=== PATIENT | female | born 1960 | race Caucasian/White ===

== ENCOUNTER 2018-02-25 07:12 | Day surgery (SDC) | payer BC ==
[~2018-02-25 07:12] MED LIST: ACYC800 PO; AMOX875 PO; Antivert25 MG PO; CALCA500CH PO; CIPR500 PO; CONEST1.25 PO; DOXE50 PO; Doxazosin Mesyla8 MG PO; FAMO20 PO; FLAX PO; HYDACE5 PO; HYDACE7.5 PO; Hydrocodone-Ap1 EA23 PO; LAMO100 PO; LAMO50 PO; LEVOTHYROXINE 100 MG; LEVSOD100 PO; LEVSOD25 PO; LEVSOD75 PO; MIRT30 PO; OMEP20ER PO; OXYACE5T PO; Omeprazole20 M1 PO; PARO10 PO; PENVK500 PO; PHENA200 PO; PRIMROSE; PROM25 PO; QUET100 PO; QUET300 PO; RXPHEN200 PO; TOCO1000 PO; TOCO400 PO; VICODIN 5-3001 EACH PO; VITAMIN D10000 UNIT PO; Vicodin PO; ZOLP10 PO; [UNRECOGNIZED DRUG - OTHER] PO
== END 2018-02-25 23:10 | disposition home or self-care (01) ==
LOC: MOI US 07:12
PROC: 0HBU3ZX Excision of Left Breast, Percutaneous Approach, Diagnostic (ICD-10-PCS; principal; 2018-02-25)
DX: D49.3 Neoplasm of unspecified behavior of breast (principal)
CPT/HCPCS: 19083; 77065; 88305

== ENCOUNTER → 2019-06-27 | Outpatient (CLI) | payer BC ==
[~2019-06-27] MED LIST changes: +Cephalexin500 MG PO; +Hair, Skin & N1 EACH PO; +IRON18 MG PO; +Norco 7.5-3251 EACH PO; +Prinivil10 MG PO; +Pyridium100 MG PO
[2019-06-27 15:31] LABS: BASOPHILS ABSOLUTE AUTO 0.03 K/mm3 (0.00-0.23); BASOPHILS PERCENT AUTO 1 % (0-2); EOSINOPHILS ABSOLUTE AUTO 0.08 K/mm3 (0.00-0.68); EOSINOPHILS PERCENT AUTO 1 % (0-6); Hematocrit 35.8 % (33.0-51.0); Hemoglobin 11.8 g/dL (11.5-16.0); IMMATURE GRAN ABSOLUTE AUTO 0.03 K/mm3 (0.00-0.10); IMMATURE GRAN PERCENT AUTO 1 % (0-1); LYMPHOCYTES ABSOLUTE AUTO 2.71 K/mm3 (0.84-5.20); LYMPHOCYTES PERCENT AUTO 43 % (21-46); MONOCYTES ABSOLUTE AUTO 0.38 K/mm3 (0.16-1.47); MONOCYTES PERCENT AUTO 6 % (4-13); Mean Corpuscular HGB 33.8 pg (26.0-34.0); Mean Corpuscular Volume 103 fL (80-100); Mean Platelet Volume 9.4 fL (9.1-12.4); NEUTROPHILS ABSOLUTE AUTO 3.08 K/mm3 (1.96-9.15); NEUTROPHILS PERCENT AUTO 49 % (41-73); Platelet Count 296 K/mm3 (150-400); RDW Coefficient Variation 12.8 % (11.7-14.2); Red Blood Cell Count 3.49 M/mm3 (3.80-5.20); White Blood Cell Count 6.31 K/mm3 (4.00-11.30)
== END | disposition home or self-care (01) ==
LOC: LAB EV 15:24 → LAB SHORT 15:24
PROVIDERS: Physician Assistant
DX: R59.0 Localized enlarged lymph nodes (principal)
CPT/HCPCS: 85025

== ENCOUNTER 2019-06-28 10:03 | Observation (INO) | payer BC ==
[~2019-06-28] VITALS: Ht 162.6 cm; Wt 56.8 kg
[~2019-06-28 10:03] MED LIST changes: -IRON18 MG PO; -Norco 7.5-3251 EACH PO; -Prinivil10 MG PO; -Pyridium100 MG PO
[2019-06-28 11:21] LABS: Hematocrit 37.9 % (33.0-51.0); Hemoglobin 12.1 g/dL (11.5-16.0); Mean Corpuscular HGB 33.3 pg (26.0-34.0); Mean Corpuscular HGB Conc 31.9 g/dL (31.5-36.5); Mean Corpuscular Volume 104 fL (80-100); Mean Platelet Volume 9.1 fL (9.1-12.4); Platelet Count 287 K/mm3 (150-400); RDW Coefficient Variation 12.6 % (11.7-14.2); RDW Standard Deviation 48.6 fL (35.1-46.3); Red Blood Cell Count 3.63 M/mm3 (3.80-5.20); White Blood Cell Count 5.35 K/mm3 (4.00-11.30)
[2019-06-28 11:39] LABS: Alanine Aminotransfer (ALT/SGP 33 U/L (12-78); Albumin, Blood 3.6 g/dL (3.4-5.0); Albumin/Globulin Ratio 1.2 (0.8-1.8); Alk Phos 89 U/L (50-136); Anion Gap 5 mmol/L (6-16); Aspartate Aminotrans (AST/SGOT 24 U/L (12-37); Bilirubin, Total 0.3 mg/dL (0.1-1.0); Blood Urea Nitrogen 7 mg/dL (8-24); Bun/Creatinine Ratio 11.2 (12.0-20.0); CO2, Blood 24 mmol/L (21-32); Calcium, Blood 8.9 mg/dL (8.5-10.1); Chloride, Blood 113 mmol/L (98-108); Creatinine, Blood 0.63 mg/dL (0.40-1.00); Glomerular Filtration Rate >60 (60-); Glucose, Blood 84 mg/dL (70-99); Potassium, Blood 4.1 mmol/L (3.5-5.5); Sodium, Blood 142 mmol/L (136-145); Total Protein, Blood 6.6 g/dL (6.4-8.2)
--- NOTE | 2019-06-28 13:20 | NUR ---
History, Chart, Medications and Allergies reviewed before start of procedure. Lungs clear T/O to Auscultation. Patient confirms NPO status and agrees with scheduled surgery.
--- NOTE | 2019-06-28 15:02 | NUR ---
06/28/19 1502 Edis Casarez PATIENT POSITIONED USING PINK PAGAZI PAD. ARMS PADDED WITH FOAM AND TUCKED AT SIDES. SAFETY STRAP ACROSS CHEST AND THIGHS.
--- NOTE | 2019-06-28 18:14 | NUR ---
POST OP PT ARRIVES POST OP, VERY PAINFUL, TEARFUL, BUT STOIC. LAP SITES x 3 W/ CLEAN STERI STRIPS. CASTANO WNL. LUNGS CLEAR. HRR.
--- NOTE | 2019-06-29 07:01 | NUR ---
RECVD REPORT FROM PREVIOUS SHIFT RN SUMMER. PT AWAKE IN BED, A/0 X 4, PLEASANT/COOPERATIVE, BED IN LOWEST POSITION, BED RAILS UP X 2.
--- NOTE | 2019-06-29 11:40 | NUR ---
DR MARTÍNEZ ROUNDING ON PT
[2019-06-29] MEDS ORDERED: Norco 7.5-3251 EACH PO (16:44)
--- NOTE | 2019-06-29 16:50 | NUR ---
provided pt with discharge teaching, instructions, printed material. pt states understanding of instructions. written prescriptions provided to pt's . peripheral IVs removed WNL. pt's escorted belongings to awaiting vehicle. pt escorted via wheelchair to vehicle
[2019-08-14] MEDS ORDERED: Prinivil10 MG PO (10:40)
[2019-08-14] MEDS ORDERED: Pyridium100 MG PO (10:42)
== END 2019-06-29 16:55 | disposition home or self-care (01) ==
LOC: SURS 10:03
PROVIDERS: Family Medicine; Surgery; ADMIT Internal Medicine Endocrinology, Diabetes & Metabolism
PROC: 8E0W0CZ Robotic Assisted Procedure of Trunk Region, Open Approach (ICD-10-PCS; 2019-06-28)
PROC: 0YU60JZ Supplement Left Inguinal Region with Synthetic Substitute, Open Approach (ICD-10-PCS; principal; 2019-06-28 13:45)
DX: K40.30 Unilateral inguinal hernia, with obstruction, without gangrene, not specified as recurrent (principal); K41.30 Unilateral femoral hernia, with obstruction, without gangrene, not specified as recurrent; Q43.8 Other specified congenital malformations of intestine; I10 Essential (primary) hypertension; J45.909 Unspecified asthma, uncomplicated; E03.9 Hypothyroidism, unspecified; F32.9 Major depressive disorder, single episode, unspecified; F41.9 Anxiety disorder, unspecified; Z98.84 Bariatric surgery status; Z98.890 Other specified postprocedural states; Z79.51 Long term (current) use of inhaled steroids; Z79.899 Other long term (current) drug therapy; Z88.6 Allergy status to analgesic agent; Z88.5 Allergy status to narcotic agent; Z88.8 Allergy status to other drugs, medicaments and biological substances; Z88.1 Allergy status to other antibiotic agents; Z91.048 Other nonmedicinal substance allergy status
CPT/HCPCS: 36415; 80053; 85027; 87070; 87081; 93005; 93010; A9270-GY; C1781; G0378; J0690; J1100; J1170; J2250; J2370; J2405; J2704; J3010; J7120

== ENCOUNTER 2019-08-17 06:56 | Day surgery (SDC) | payer BC ==
[~2019-08-17] VITALS: Ht 164 cm; Wt 55.3 kg
[~2019-08-17 06:56] MED LIST changes: +Norco 7.5-3251 EACH PO; +Prinivil10 MG PO; +Pyridium100 MG PO
[2019-08-17] MEDS ORDERED: IRON18 MG PO (07:16)
--- NOTE | 2019-08-17 08:01 | NUR ---
Ambulatory in Day Surgery History, Chart, Medications and Allergies reviewed before start of procedure.Patient confirms NPO status and agrees with scheduled surgery. Patient reports completing Chlorhexadine shower X2 prior to admission to hospital.Surgical site prepped with 2% Chlorhexidine cloth wipe. Lungs clear T/O to Auscultation. Patient States Post-Procedure ride home has been arranged. GLASSES REMOVED AND TAKEN TO PACU. PT INSISTED PERSONAL PILLOW BE USED ON [facility].
--- NOTE | 2019-08-17 09:56 | NUR ---
PT CONTINUES TO RATE PAIN AT 8/10 AFTER TOATL OF 100 MCG FENTANYL. PT REQUESTS DILAUDID FOR PAIN CONTROL "I DO REALLY WELL WITH DILAUDID." WILL DISCCUSS WITH MD. RESP STATUS WNL. SATS 100% ON RA. RR 16-18.
--- NOTE | 2019-08-17 10:17 | NUR ---
APPROX [address]POKE [address] MEEHAN WHO ORDERED IV DILAUDID FOR PAIN CONTROL. PT STATES "THAT'S SO MUCH BETTER" AFTER ADMINISTRATION. RATES PAIN 6/10 AT THIS TIME AND STATES "PAIN IS GOING DOWN."
--- NOTE | 2019-08-17 10:29 | NUR ---
Dressing to procedure site clean, dry, intact with no visible drainag, swelling, erythema or bruising noted.
--- NOTE | 2019-08-17 11:19 | NUR ---
Patient up to Ambulate independently. Gait stead. Discharge instructions reviewed with patient. Patient verbalizes understanding. Copy given to patient to take home. Dressing to procedure site clean, dry, intact with no visible drainage, swelling, erythema or bruising noted. Discharged via wheelchair to private car for ride home. pATIENT PAIN LOWER TO/ AND THE PATIENT STATED THAT SHE WAS READY TO GO HOME.
== END 2019-08-17 11:30 | disposition home or self-care (01) ==
LOC: ORSCMMR 06:56 → ORD 08:45 → ORSCMMR 08:45
PROVIDERS: Surgery
PROC: 0WUF0JZ Supplement Abdominal Wall with Synthetic Substitute, Open Approach (ICD-10-PCS; principal; 2019-08-17 08:45)
DX: K43.6 Other and unspecified ventral hernia with obstruction, without gangrene (principal); I10 Essential (primary) hypertension; J45.909 Unspecified asthma, uncomplicated; E03.9 Hypothyroidism, unspecified; F31.9 Bipolar disorder, unspecified; Z79.899 Other long term (current) drug therapy
CPT/HCPCS: A9270-GY; C1781; J0690; J1100; J1170; J2250; J2370; J2405; J2704; J3010; J7120

== ENCOUNTER 2020-01-01 19:17 | Emergency (ER) | payer BC ==
[~2020-01-01] VITALS: Ht 162.6 cm; Wt 58.1 kg
[~2020-01-01 19:17] MED LIST changes: +IRON18 MG PO
[2020-01-01 20:20] LABS: BASOPHILS ABSOLUTE AUTO 0.03 K/mm3 (0.00-0.23); BASOPHILS PERCENT AUTO 1 % (0-2); EOSINOPHILS ABSOLUTE AUTO 0.19 K/mm3 (0.00-0.68); EOSINOPHILS PERCENT AUTO 3 % (0-6); IMMATURE GRAN ABSOLUTE AUTO 0.03 K/mm3 (0.00-0.10); IMMATURE GRAN PERCENT AUTO 1 % (0-1); LYMPHOCYTES ABSOLUTE AUTO 2.01 K/mm3 (0.84-5.20); LYMPHOCYTES PERCENT AUTO 36 % (21-46); MONOCYTES ABSOLUTE AUTO 0.58 K/mm3 (0.16-1.47); MONOCYTES PERCENT AUTO 11 % (4-13); Mean Corpuscular HGB 33.4 pg (26.0-34.0); Mean Corpuscular HGB Conc 33.3 g/dL (31.5-36.5); Mean Corpuscular Volume 100 fL (80-100); Mean Platelet Volume 9.6 fL (9.1-12.4); NEUTROPHILS ABSOLUTE AUTO 2.68 K/mm3 (1.96-9.15); NEUTROPHILS PERCENT AUTO 49 % (41-73); Platelet Count 324 K/mm3 (150-400); RDW Coefficient Variation 12.6 % (11.7-14.2); RDW Standard Deviation 46.6 fL (35.1-46.3); Red Blood Cell Count 3.89 M/mm3 (3.80-5.20); White Blood Cell Count 5.52 K/mm3 (4.00-11.30)
[2020-01-01 20:46] LABS: Alanine Aminotransfer (ALT/SGP 78 U/L (12-78); Albumin, Blood 2.9 g/dL (3.4-5.0); Albumin/Globulin Ratio 0.8 (0.8-1.8); Alk Phos 120 U/L (50-136); Anion Gap 5 mmol/L (6-16); Aspartate Aminotrans (AST/SGOT 74 U/L (12-37); Bilirubin, Total 0.2 mg/dL (0.1-1.0); Blood Urea Nitrogen 10 mg/dL (8-24); Bun/Creatinine Ratio 17.8 (12.0-20.0); CO2, Blood 22 mmol/L (21-32); Chloride, Blood 114 mmol/L (98-108); Creatinine, Blood 0.56 mg/dL (0.40-1.00); Globulin, Blood 3.7 g/dL (2.2-4.0); Glomerular Filtration Rate >60 (60-); Glucose, Blood 114 mg/dL (70-99); Potassium, Blood 4.6 mmol/L (3.5-5.5); Sodium, Blood 141 mmol/L (136-145); Total Protein, Blood 6.6 g/dL (6.4-8.2); Troponin I <0.015 ng/mL (0.000-0.040)
[2020-01-01] MEDS ORDERED: Prednisone20 MG PO (21:06)
== END 2020-01-01 21:59 | disposition home or self-care (01) ==
LOC: ER 19:17
PROVIDERS: Physician Assistant
DX: R05 Cough (principal); F31.81 Bipolar II disorder; I10 Essential (primary) hypertension; Z87.891 Personal history of nicotine dependence; Z79.899 Other long term (current) drug therapy
CPT/HCPCS: 80053; 83690; 84484; 85025; 93005; 93010; 99283-25; J7512

== ENCOUNTER 2020-05-17 21:07 | Emergency (ER) | payer BC ==
[~2020-05-17] VITALS: Ht 160 cm; Wt 61.2 kg
[~2020-05-17 21:07] MED LIST changes: +Prednisone20 MG PO
== END 2020-05-17 22:55 | disposition home or self-care (01) ==
LOC: ER 21:07
DX: S92.512A Displaced fracture of proximal phalanx of left lesser toe(s), initial encounter for closed fracture (principal); Z88.5 Allergy status to narcotic agent; Z88.1 Allergy status to other antibiotic agents; Z91.040 Latex allergy status; Z88.8 Allergy status to other drugs, medicaments and biological substances; Z91.018 Allergy to other foods; Z79.899 Other long term (current) drug therapy; Z79.52 Long term (current) use of systemic steroids; F31.9 Bipolar disorder, unspecified; Z87.891 Personal history of nicotine dependence; X58.XXXA Exposure to other specified factors, initial encounter
CPT/HCPCS: 73630; 99283-25

== ENCOUNTER 2021-02-10 15:35 | Day surgery (SDC) | payer BC ==
[~2021-02-10] VITALS: Ht 160 cm; Wt 63.4 kg
[2021-02-10 16:45] LABS: Hematocrit 42.6 % (33.0-51.0); Hemoglobin 13.8 g/dL (11.5-16.0); Mean Corpuscular HGB 32.2 pg (26.0-34.0); Mean Corpuscular HGB Conc 32.4 g/dL (31.5-36.5); Mean Corpuscular Volume 99 fL (80-100); Mean Platelet Volume 9.5 fL (9.1-12.4); Platelet Count 347 K/mm3 (150-400); RDW Coefficient Variation 12.9 % (11.7-14.2); RDW Standard Deviation 47.1 fL (35.1-46.3); Red Blood Cell Count 4.29 M/mm3 (3.80-5.20); White Blood Cell Count 5.67 K/mm3 (4.00-11.30)
[2021-02-10 17:00] LABS: International Normalized Ratio 0.97; Prothrombin Time Results 10.4 Sec (9.7-11.5)
[2021-02-10 17:12] LABS: Anion Gap 6 mmol/L (6-16); Blood Urea Nitrogen 12 mg/dL (8-24); Bun/Creatinine Ratio 16.8 (12.0-20.0); CO2, Blood 23 mmol/L (21-32); Calcium, Blood 8.9 mg/dL (8.5-10.1); Chloride, Blood 113 mmol/L (98-108); Creatinine, Blood 0.71 mg/dL (0.40-1.00); Glomerular Filtration Rate >60 (60-); Glucose, Blood 88 mg/dL (70-99); Potassium, Blood 4.1 mmol/L (3.5-5.5); Sodium, Blood 142 mmol/L (136-145)
--- NOTE | 2021-02-10 17:26 | NUR ---
Echocardiogram completed.
--- NOTE | 2021-02-10 17:57 | NUR ---
SHIFT SUMMARY; DIRECT ADMIT FROM [facility] TODAY. A/A/OX4, INDEPENDANT IN ROOM. NPO AFTER MIDNIGHT FOR PACEMAKER PLACEMENT TOMORROW. ECHO COMPLETE THIS AFTERNOON. VSS, WILL CONTINUE TO TREAT AND MONITOR UNTIL CHANGE OF SHIFT.
[2021-02-10 19:00] LABS: Influenza A, PCR NEGATIVE (NEGATIVE); Influenza B, PCR NEGATIVE (NEGATIVE); Resp Syncytial Virus, PCR NEGATIVE (NEGATIVE); SARS-Cov-2 (COVID-19) PCR, MMC NEGATIVE (NEGATIVE)
--- NOTE | 2021-02-11 04:15 | NUR ---
VAT HOUSE LABORER SUMMARY PT HAS HAD A HR BETWEEN 60-80 THROUGH MOST OF THE SHIFT. PT HAS DENIED ANY DIZZINESS WHILE AMBULATING.NO C/O CP OR NAUSEA THIS SHIFT. PT C/O BACK PAIN AND A HEADACHE AND WAS MEDICATED PER EMAR. PT NPO AFTER MIDNIGHT. BP ELEVATED AT START OF SHIFT BUT RESOLVED AFTER GIVEN PAIN MEDICATION. WCTM.
--- NOTE | 2021-02-11 07:17 | NUR ---
TAKEN TO CIVIL ENGINEERING INTERN FOR PACEMAKER.
--- NOTE | 2021-02-11 14:15 | NUR ---
CARE COORDINATION REFERRAL - ADMIT: 02/10/21 DISCHARGE: DX: 2ND DEGREE AV BLOCK CC: KWILCOX AMALIA CALL: (WOUND CHECK- 1 WEEK; DEVICE CHECK- 1MO) RESIDENCE: HOME WITH SPOUSE CAREGIVER: RORO, , DREW, DAUGHTER IN LAW, DX: HTN, CHRONIC PAIN SYNDROME, GERD, IBS, SEE LIST DME: COMPRESSION STOCKINGS, WALKING CAST CCM: NONE HOME HEALTH: NONE SUMMARY: ADMIT: 02/10/21 02/11/21- PER CHART REVIEW, PT HAD DUAL CHAMBER PACEMAKER PLACED TODAY. PER CARDIOLOGY NOTE, PT NEEDS WOUND CHECK IN 1 WEEK AND DEVICE CHECK IN 1 MO WITH TIRE BEADER MAKER. PER DR. COLLAZO, PT WILL BE ABLE TO D/C TOMORROW. MET WITH PT AND HER , REVIEWED AMALIA LETTER. WILL BE TAKING HER HOME AND IS ABLE TO PROVIDE HER CARE NEEDS IN THE HOME. REVIEWED WITH PT AND WHAT FOLLOW UP APPTS THEY WILL NEED TO MAKE WITH CARDIOLOGY AND PCP. PT AND ACKNOWLEDGED UNDERSTANDING. -WILMAN
--- NOTE | 2021-02-11 17:59 | NUR ---
SHIFT SUMMARY; ASSUMED CARE AT 0700, REPORT FROM EILEEN GRIFFITH. PACEMAKER PLACED THIS AM. TOLERATED PROCEDURE WELL. LEFT ARM SLING IN PLACE FOLLOWING PROCEDURE, INSTRUCTIONS GIVEN ON NOT USING LEFT ARM. LEFT CHEST WALL DRESSING DRY AND INTACT. A/A/OX4 THROUGHOUT SHIFT. NO ACUTE CHANGES. WILL CONTINUE TO MONITOR AND TREAT UNTIL CHANGE OF SHIFT.
[2021-02-12 04:11] LABS: BASOPHILS ABSOLUTE AUTO 0.03 K/mm3 (0.00-0.23); BASOPHILS PERCENT AUTO 1 % (0-2); EOSINOPHILS ABSOLUTE AUTO 0.21 K/mm3 (0.00-0.68); EOSINOPHILS PERCENT AUTO 4 % (0-6); Hematocrit 41.1 % (33.0-51.0); Hemoglobin 13.5 g/dL (11.5-16.0); IMMATURE GRAN ABSOLUTE AUTO 0.02 K/mm3 (0.00-0.10); IMMATURE GRAN PERCENT AUTO 0 % (0-1); LYMPHOCYTES ABSOLUTE AUTO 2.11 K/mm3 (0.84-5.20); LYMPHOCYTES PERCENT AUTO 37 % (21-46); MONOCYTES ABSOLUTE AUTO 0.66 K/mm3 (0.16-1.47); MONOCYTES PERCENT AUTO 12 % (4-13); Mean Corpuscular HGB 32.5 pg (26.0-34.0); Mean Corpuscular HGB Conc 32.8 g/dL (31.5-36.5); Mean Corpuscular Volume 99 fL (80-100); Mean Platelet Volume 9.3 fL (9.1-12.4); NEUTROPHILS ABSOLUTE AUTO 2.73 K/mm3 (1.96-9.15); NEUTROPHILS PERCENT AUTO 48 % (41-73); Platelet Count 262 K/mm3 (150-400); RDW Coefficient Variation 12.9 % (11.7-14.2); RDW Standard Deviation 46.9 fL (35.1-46.3); Red Blood Cell Count 4.15 M/mm3 (3.80-5.20); White Blood Cell Count 5.76 K/mm3 (4.00-11.30)
[2021-02-12 04:32] LABS: Anion Gap 4 mmol/L (6-16); Blood Urea Nitrogen 9 mg/dL (8-24); Bun/Creatinine Ratio 14.9 (12.0-20.0); CO2, Blood 27 mmol/L (21-32); Calcium, Blood 8.6 mg/dL (8.5-10.1); Chloride, Blood 110 mmol/L (98-108); Creatinine, Blood 0.61 mg/dL (0.40-1.00); Glomerular Filtration Rate >60 (60-); Glucose, Blood 103 mg/dL (70-99); Magnesium, Blood 1.9 mg/dL (1.6-2.4); Potassium, Blood 4.9 mmol/L (3.5-5.5); Sodium, Blood 141 mmol/L (136-145)
--- NOTE | 2021-02-12 05:46 | NUR ---
shift summary pt rested well through the night. alert and oriented - able to make needs known and is cooperative with plan of care. tele nsr, 80's. sats >90% on room air. independent to bathroom. voiding, no bm. pt c/o chronic back pain and some soreness from pacemaker - see emar for biomedical specialist. pacemaker site c/d/i. vss. call light within reach, bed in lowest position. will continue to monitor.
[2021-02-12] MEDS ORDERED: Norco 7.5-3251 EACH PO (12:01)
[2021-02-12] MEDS ORDERED: BENZ100A PO (12:01)
[2021-02-12] MEDS ORDERED: MELA3 PO (12:02)
[2021-02-12] MEDS ORDERED: CEPH500 PO (12:03)
--- NOTE | 2021-02-12 12:40 | NUR ---
DISCHARGE PT DISCHARGED AT APPROXIMATELY 1226. PT LEFT THE UNIT VIA WHEELCHAIR ACCOMPANIED BY SOLAR MANUFACTURER'S REPRESENTATIVE AND HER SPOUSE. PT WAS GIVEN INSTRUCTIONS ON HOW TO CARE FOR THE PACER SITE. SLING WAS IN PLACE. PT WAS GIVEN FOLLOW UP APPOINTMENT DETAILS WELL A WRITTEN SCRIPT FOR [facility] IN ADDITION TO A SCRIPT SENT TO HER PHARMACY FOR KEFLEX. PT GAVE VERBAL UNDERSTANDING OF THE AFOREMENTIONED EDUCATION AND INFORMATION.
== END 2021-02-12 12:26 | disposition home or self-care (01) ==
LOC: PCU 15:35 → MHTC 15:35 → PCU 02-12 12:26 → EDSTATUS 02-20 13:04
PROVIDERS: Internal Medicine; Internal Medicine Cardiovascular Disease
PROC: 0JH606Z Insertion of Pacemaker, Dual Chamber into Chest Subcutaneous Tissue and Fascia, Open Approach (ICD-10-PCS; principal; 2021-02-11)
PROC: 02HK3JZ Insertion of Pacemaker Lead into Right Ventricle, Percutaneous Approach (ICD-10-PCS; 2021-02-11)
PROC: 02H63JZ Insertion of Pacemaker Lead into Right Atrium, Percutaneous Approach (ICD-10-PCS; 2021-02-11)
DX: I44.1 Atrioventricular block, second degree (principal); I45.5 Other specified heart block; I49.5 Sick sinus syndrome; E03.9 Hypothyroidism, unspecified; G47.00 Insomnia, unspecified; F31.81 Bipolar II disorder; K21.9 Gastro-esophageal reflux disease without esophagitis; I10 Essential (primary) hypertension; Z20.822 Contact with and (suspected) exposure to COVID-19; Z88.5 Allergy status to narcotic agent; Z88.8 Allergy status to other drugs, medicaments and biological substances; Z91.048 Other nonmedicinal substance allergy status; Z87.891 Personal history of nicotine dependence
CPT/HCPCS: 0241U; 33208; 36415; 71045; 71046; 76937; 80048; 83735; 84100; 84443; 85025; 85027; 85610; 93306; 99152; 99153; A9270; A9270-GY; C1781; C1785; C1894; C1898; J0690; J1644; J2250; J2405; J3010; J7030; J7040

== ENCOUNTER 2021-06-03 07:17 | Day surgery (SDC) | payer BC ==
[~2021-06-03] VITALS: Ht 160 cm; Wt 57.1 kg
[~2021-06-03 07:17] MED LIST changes: +BENZ100A PO; +CEPH500 PO; +DOXE25 PO; +HYDROCODONE-AC1 EA13 PO; +MELA3 PO; +ONDA4 PO
--- NOTE | 2021-06-03 08:14 | NUR ---
06/03/21 0814 Juan Rivera PRP DRAWN AND BROUGHT TO OR
--- NOTE | 2021-06-03 10:06 | NUR ---
06/03/21 [id number] Sera Barreto PT RESTING ON RECLINER. TOLERATING SNACKS. VS WNL. WILL CONTINUE TO MONITOR.
== END 2021-06-03 11:00 | disposition home or self-care (01) ==
LOC: ORSCSDS 07:17
PROVIDERS: Orthopaedic Surgery
PROC: 0SQD4ZZ Repair Left Knee Joint, Percutaneous Endoscopic Approach (ICD-10-PCS; principal; 2021-06-03 08:30)
PROC: 0SBD4ZZ Excision of Left Knee Joint, Percutaneous Endoscopic Approach (ICD-10-PCS; principal; 2021-06-03 08:30)
DX: M94.262 Chondromalacia, left knee (principal); M17.12 Unilateral primary osteoarthritis, left knee; M23.92 Unspecified internal derangement of left knee; I10 Essential (primary) hypertension; E03.9 Hypothyroidism, unspecified; F41.9 Anxiety disorder, unspecified; F31.9 Bipolar disorder, unspecified; J45.909 Unspecified asthma, uncomplicated; Z79.899 Other long term (current) drug therapy; Z87.891 Personal history of nicotine dependence
CPT/HCPCS: J0171; J0690; J1100; J1885; J2250; J2405; J2704; J2795; J3010; J7120

== ENCOUNTER 2023-03-28 20:24 | Emergency (ER) | payer MEDICARE ==
[~2023-03-28] VITALS: Ht 160 cm; Wt 51.7 kg
[2023-03-28 20:51] LABS: BASOPHILS ABSOLUTE AUTO 0.07 K/mm3 (0.00-0.23); BASOPHILS PERCENT AUTO 1 % (0-2); EOSINOPHILS ABSOLUTE AUTO 0.13 K/mm3 (0.00-0.68); EOSINOPHILS PERCENT AUTO 1 % (0-6); Hematocrit 39.5 % (33.0-51.0); Hemoglobin 12.8 g/dL (11.5-16.0); IMMATURE GRAN ABSOLUTE AUTO 0.38 K/mm3 (0.00-0.10); IMMATURE GRAN PERCENT AUTO 4 % (0-1); LYMPHOCYTES ABSOLUTE AUTO 3.72 K/mm3 (0.84-5.20); LYMPHOCYTES PERCENT AUTO 39 % (21-46); MONOCYTES ABSOLUTE AUTO 0.85 K/mm3 (0.16-1.47); MONOCYTES PERCENT AUTO 9 % (4-13); Mean Corpuscular HGB Conc 32.4 g/dL (31.5-36.5); Mean Corpuscular Volume 99 fL (80-100); Mean Platelet Volume 8.8 fL (9.1-12.4); NEUTROPHILS ABSOLUTE AUTO 4.34 K/mm3 (1.96-9.15); NEUTROPHILS PERCENT AUTO 46 % (41-73); Platelet Count 526 K/mm3 (150-400); RDW Coefficient Variation 12.7 % (11.7-14.2); RDW Standard Deviation 45.8 fL (35.1-46.3); White Blood Cell Count 9.49 K/mm3 (4.00-11.30)
[2023-03-28 21:11] LABS: Alanine Aminotransfer (ALT/SGP 41 U/L (12-78); Albumin, Blood 3.1 g/dL (3.4-5.0); Albumin/Globulin Ratio 0.9 (0.8-1.8); Alk Phos 105 U/L (50-136); Anion Gap 4 mmol/L (6-16); Aspartate Aminotrans (AST/SGOT 22 U/L (12-37); Bilirubin, Total <0.1 mg/dL (0.1-1.0); Blood Urea Nitrogen 17 mg/dL (8-24); Bun/Creatinine Ratio 21.5 (12.0-20.0); CO2, Blood 26 mmol/L (21-32); Calcium, Blood 8.7 mg/dL (8.5-10.1); Chloride, Blood 109 mmol/L (98-108); Creatinine, Blood 0.79 mg/dL (0.40-1.00); Globulin, Blood 3.5 g/dL (2.2-4.0); Glomerular Filtration Rate 86 (60-); Glucose, Blood 105 mg/dL (70-99); Potassium, Blood 4.6 mmol/L (3.5-5.5); Sodium, Blood 139 mmol/L (136-145); Total Protein, Blood 6.6 g/dL (6.4-8.2)
[2023-03-28 23:45] VITALS: BP 142/82
[2023-03-29] MEDS ORDERED: Pepcid20 MG PO (00:02)
== END 2023-03-29 00:24 | disposition home or self-care (01) ==
LOC: ER 20:24
PROVIDERS: Student in an Organized Health Care Education/Training Program
DX: R07.9 Chest pain, unspecified (principal); I47.1 Supraventricular tachycardia; F31.81 Bipolar II disorder; Z88.5 Allergy status to narcotic agent; Z88.6 Allergy status to analgesic agent; Z88.1 Allergy status to other antibiotic agents; Z91.040 Latex allergy status; Z91.018 Allergy to other foods; Z88.8 Allergy status to other drugs, medicaments and biological substances; Z91.048 Other nonmedicinal substance allergy status; Z79.899 Other long term (current) drug therapy; Z87.891 Personal history of nicotine dependence
CPT/HCPCS: 71046; 80053; 84484; 85025; 93005; 93010; 99285-25; A9270

== ENCOUNTER → 2023-04-01 | Outpatient (CLI) | payer MEDICARE ==
[~2023-04-01] MED LIST changes: +Pepcid20 MG PO
== END ==
LOC: LAB SHORT 07:00 → LAB 07:00
DX: R30.0 Dysuria (principal)
CPT/HCPCS: 87077; 87086; 87186

== ENCOUNTER → 2023-04-07 | Outpatient (CLI) | payer MEDICARE ==
[2023-04-07 15:49] LABS: BASOPHILS ABSOLUTE AUTO 0.04 K/mm3 (0.00-0.23); BASOPHILS PERCENT AUTO 1 % (0-2); EOSINOPHILS ABSOLUTE AUTO 0.08 K/mm3 (0.00-0.68); EOSINOPHILS PERCENT AUTO 1 % (0-6); Hematocrit 38.2 % (33.0-51.0); Hemoglobin 12.5 g/dL (11.5-16.0); IMMATURE GRAN ABSOLUTE AUTO 0.06 K/mm3 (0.00-0.10); IMMATURE GRAN PERCENT AUTO 1 % (0-1); LYMPHOCYTES ABSOLUTE AUTO 3.15 K/mm3 (0.84-5.20); LYMPHOCYTES PERCENT AUTO 41 % (21-46); MONOCYTES ABSOLUTE AUTO 0.75 K/mm3 (0.16-1.47); MONOCYTES PERCENT AUTO 10 % (4-13); Mean Corpuscular HGB 32.7 pg (26.0-34.0); Mean Corpuscular HGB Conc 32.7 g/dL (31.5-36.5); Mean Corpuscular Volume 100 fL (80-100); Mean Platelet Volume 9.3 fL (9.1-12.4); NEUTROPHILS ABSOLUTE AUTO 3.68 K/mm3 (1.96-9.15); NEUTROPHILS PERCENT AUTO 47 % (41-73); Platelet Count 424 K/mm3 (150-400); RDW Coefficient Variation 13.4 % (11.7-14.2); RDW Standard Deviation 48.7 fL (35.1-46.3); Red Blood Cell Count 3.82 M/mm3 (3.80-5.20); White Blood Cell Count 7.76 K/mm3 (4.00-11.30)
[2023-04-07 16:18] LABS: Albumin, Blood 3.5 g/dL (3.4-5.0); Bilirubin, Total 0.2 mg/dL (0.1-1.0); Bun/Creatinine Ratio 20.8 (12.0-20.0); Calcium, Blood 8.7 mg/dL (8.5-10.1); Creatinine, Blood 0.96 mg/dL (0.40-1.00); Globulin, Blood 3.6 g/dL (2.2-4.0); Potassium, Blood 4.3 mmol/L (3.5-5.5); Thyroid Stimulating Hormone 2.091 uIU/mL (0.360-4.800); Total Protein, Blood 7.1 g/dL (6.4-8.2)
== END | disposition home or self-care (01) ==
LOC: LAB SHORT 15:44
PROVIDERS: Physician Assistant
DX: R07.9 Chest pain, unspecified (principal); R53.83 Other fatigue
CPT/HCPCS: 80053; 83735; 84443; 84484; 85025

== ENCOUNTER → 2023-04-12 | Outpatient (CLI) | payer MEDICARE ==
[2023-04-12 16:22] LABS: BASOPHILS ABSOLUTE AUTO 0.04 K/mm3 (0.00-0.23); BASOPHILS PERCENT AUTO 1 % (0-2); EOSINOPHILS ABSOLUTE AUTO 0.11 K/mm3 (0.00-0.68); EOSINOPHILS PERCENT AUTO 2 % (0-6); Hematocrit 35.7 % (33.0-51.0); Hemoglobin 11.9 g/dL (11.5-16.0); IMMATURE GRAN ABSOLUTE AUTO 0.03 K/mm3 (0.00-0.10); IMMATURE GRAN PERCENT AUTO 1 % (0-1); LYMPHOCYTES ABSOLUTE AUTO 2.95 K/mm3 (0.84-5.20); LYMPHOCYTES PERCENT AUTO 47 % (21-46); MONOCYTES ABSOLUTE AUTO 0.54 K/mm3 (0.16-1.47); MONOCYTES PERCENT AUTO 9 % (4-13); Mean Corpuscular HGB 33.2 pg (26.0-34.0); Mean Corpuscular HGB Conc 33.3 g/dL (31.5-36.5); Mean Corpuscular Volume 100 fL (80-100); NEUTROPHILS ABSOLUTE AUTO 2.58 K/mm3 (1.96-9.15); NEUTROPHILS PERCENT AUTO 41 % (41-73); Platelet Count 342 K/mm3 (150-400); RDW Coefficient Variation 13.7 % (11.7-14.2); RDW Standard Deviation 49.8 fL (35.1-46.3); Red Blood Cell Count 3.58 M/mm3 (3.80-5.20); White Blood Cell Count 6.25 K/mm3 (4.00-11.30)
[2023-04-12 20:54] LABS: Adenovirus F 40/41 Not Detected (NOT DETECT); Astrovirus Not Detected (NOT DETECT); Campylobacter Sp Not Detected (NOT DETECT); Cryptosporidium Not Detected (NOT DETECT); Cyclospora Cayetanensis Not Detected (NOT DETECT); E. Coli O157 Not Detected (NOT DETECT); Entamoeba Histolytica Not Detected (NOT DETECT); Enteroaggregative E. coli-EAEC Not Detected (NOT DETECT); Enteropathogenic E. coli-EPEC Not Detected (NOT DETECT); Enterotoxigenic E. coli-ETEC Not Detected (NOT DETECT); Giardia Lamblia Not Detected (NOT DETECT); Norovirus GI/GII Not Detected (NOT DETECT); Plesiomonas Shigelloides Not Detected (NOT DETECT); Rotavirus A Not Detected (NOT DETECT); Salmonella Sp Not Detected (NOT DETECT); Sapovirus Not Detected (NOT DETECT); Shiga Toxin-prod E. coli-STEC Not Detected (NOT DETECT); Shigella/Enteroin E. coli-EIEC Not Detected (NOT DETECT); Vibrio Cholerae Not Detected (NOT DETECT); Vibrio Sp Not Detected (NOT DETECT); Yersinia Enterocolitica Not Detected (NOT DETECT)
== END ==
LOC: LAB 16:17 → LAB SHORT 16:17
PROVIDERS: Physician Assistant
DX: R06.00 Dyspnea, unspecified (principal); K52.9 Noninfective gastroenteritis and colitis, unspecified
CPT/HCPCS: 85025; 85379; 87507

== ENCOUNTER 2023-12-08 11:37 | Emergency (ER) | payer OTHER ==
[~2023-12-08] VITALS: Ht 160 cm; Wt 51.3 kg
[2023-12-08 12:09] LABS: BASOPHILS ABSOLUTE AUTO 0.04 K/mm3 (0.00-0.23); BASOPHILS PERCENT AUTO 1 % (0-2); EOSINOPHILS ABSOLUTE AUTO 0.11 K/mm3 (0.00-0.68); EOSINOPHILS PERCENT AUTO 2 % (0-6); Hematocrit 38.4 % (33.0-51.0); Hemoglobin 12.1 g/dL (11.5-16.0); IMMATURE GRAN ABSOLUTE AUTO 0.06 K/mm3 (0.00-0.10); IMMATURE GRAN PERCENT AUTO 1 % (0-1); LYMPHOCYTES ABSOLUTE AUTO 2.65 K/mm3 (0.84-5.20); LYMPHOCYTES PERCENT AUTO 43 % (21-46); MONOCYTES ABSOLUTE AUTO 0.52 K/mm3 (0.16-1.47); MONOCYTES PERCENT AUTO 8 % (4-13); Mean Corpuscular HGB 32.9 pg (26.0-34.0); Mean Corpuscular HGB Conc 31.5 g/dL (31.5-36.5); Mean Corpuscular Volume 104 fL (80-100); Mean Platelet Volume 9.1 fL (9.1-12.4); NEUTROPHILS ABSOLUTE AUTO 2.79 K/mm3 (1.96-9.15); NEUTROPHILS PERCENT AUTO 45 % (41-73); Platelet Count 347 K/mm3 (150-400); RDW Coefficient Variation 12.6 % (11.7-14.2); RDW Standard Deviation 49.1 fL (35.1-46.3); Red Blood Cell Count 3.68 M/mm3 (3.80-5.20); White Blood Cell Count 6.17 K/mm3 (4.00-11.30)
[2023-12-08 12:40] LABS: Albumin, Blood 3.2 g/dL (3.4-5.0); Albumin/Globulin Ratio 0.9 (0.8-1.8); Bilirubin, Total 0.3 mg/dL (0.1-1.0); Bun/Creatinine Ratio 19.5 (12.0-20.0); Calcium, Blood 9.1 mg/dL (8.5-10.1); Creatinine, Blood 0.72 mg/dL (0.40-1.00); Globulin, Blood 3.4 g/dL (2.2-4.0); Potassium, Blood 4.1 mmol/L (3.5-5.5); Total Protein, Blood 6.6 g/dL (6.4-8.2)
[2023-12-08] MEDS ORDERED: NITROGLYCERIN0.4 M3 SL (13:29)
[2023-12-08] MEDS ORDERED: EUTHYROX50 MC1 PO (13:29)
[2023-12-08] MEDS ORDERED: METO100ER PO (13:30)
[2023-12-08 16:31] VITALS: BP 137/75
== END 2023-12-08 16:32 | disposition home or self-care (01) ==
LOC: ER 11:37
PROVIDERS: Physician Assistant
DX: R07.89 Other chest pain (principal); Z95.0 Presence of cardiac pacemaker; Z87.891 Personal history of nicotine dependence; F31.81 Bipolar II disorder
CPT/HCPCS: 71046; 80053; 83690; 84484; 85025; 93005; 93010; 99285-25

== ENCOUNTER 2024-05-08 07:42 | Day surgery (SDC) | payer OTHER ==
[2024-05-08] VITALS (8 sets, daily range): BP systolic 109–131; BP diastolic 66–94
[~2024-05-08] VITALS: Ht 160 cm; Wt 52.3 kg
[~2024-05-08 07:42] MED LIST changes: +ALBU8HFA2 INH; +EUTHYROX50 MC1 PO; -HYDROCODONE-AC1 EA13 PO; +Isosorbide Mono30 MG PO; +MERIBIN5 MG PO; +METO100ER PO; +NITROGLYCERIN0.4 M3 SL; +Norco 5-325 Ta1 EACH PO; +Vitamin D1000 UNI1 PO
[2024-05-08] MEDS ORDERED: Verapamil HCL 2.5 MG/ML 2ML Injection ONE (08:26)
[2024-05-08] MEDS ORDERED: NS 1,000 ML IV ONE ×2 (08:27→08:50)
[2024-05-08] MEDS ORDERED: Nitroglycerin 2 MG/20 ML BTL ONE (08:27)
[2024-05-08] MEDS ORDERED: NS 250 ML IV ONE (08:27)
[2024-05-08] MEDS ORDERED: Heparin Sodium 1000 Units/ML 10ML MDV ONE (08:27)
[2024-05-08] MEDS ORDERED: FentaNYL Citrate 50 MCG/ML 2 ML Injection ONE (08:50)
[2024-05-08] MEDS ORDERED: Midazolam HCl 1MG / ML 2ML Vial ONE (08:50)
[2024-05-08] MEDS ORDERED: Nitroglycerin1 EAC3 TOP (10:24)
[2024-05-08] MEDS ORDERED: CLOP75 PO (10:24)
[2024-05-08] MEDS ORDERED: AMLO5 PO (10:24)
[2024-05-08] MEDS ORDERED: ATOR20 PO (10:25)
--- NOTE | 2024-05-08 10:45 | NUR ---
AIR REMOVED FROM R WRIST TR BAND. NEG SWELLING OR BLEEDING.
--- NOTE | 2024-05-08 11:54 | NUR ---
PT AND VERBALIZED UNDERSTANDING OF WRITTEN AND VERBAL D/C INST. R WRIST TR BAND REMOVED AND CLOTH DOT DRSG PLACED. R WRIST SPLINT REAPPLIED. IV REMOVED FROM LAC. PT AMB OUT OF THE DEPARTMENT /S DIFFICULTY.
== END 2024-05-08 11:57 | disposition home or self-care (01) ==
LOC: MHTC 07:42 → ORSCMMR 07:43 → MHTC 07:48
DX: I25.118 Atherosclerotic heart disease of native coronary artery with other forms of angina pectoris (principal); I47.29 Other ventricular tachycardia; R55 Syncope and collapse; I10 Essential (primary) hypertension; F31.9 Bipolar disorder, unspecified; E03.9 Hypothyroidism, unspecified; K21.9 Gastro-esophageal reflux disease without esophagitis; Z88.5 Allergy status to narcotic agent; Z88.8 Allergy status to other drugs, medicaments and biological substances; Z91.040 Latex allergy status; Z95.0 Presence of cardiac pacemaker; Z98.84 Bariatric surgery status; W19.XXXA Unspecified fall, initial encounter
CPT/HCPCS: 76937; 93454; 99152; C1769; C1894; J1644; J2250; J3010; J7030; J7050; Q9967

== ENCOUNTER 2024-09-09 18:06 | Emergency (ER) | payer OTHER ==
[~2024-09-09] VITALS: Ht 160 cm; Wt 44.9 kg
[~2024-09-09 18:06] MED LIST changes: +AMLO5 PO; +ATOR20 PO; +CLOP75 PO; +Nitroglycerin1 EAC3 TOP
[2024-09-09] MEDS ORDERED: Ondansetron HCl 2 MG / ML 2ML Vial IV ONE ×2 (18:25→20:30)
[2024-09-09 18:31] LABS: BASOPHILS ABSOLUTE AUTO 0.03 K/mm3 (0.00-0.23); BASOPHILS PERCENT AUTO 0 % (0-2); EOSINOPHILS PERCENT AUTO 0 % (0-6); Hematocrit 25.4 % (33.0-51.0); Hemoglobin 8.5 g/dL (11.5-16.0); IMMATURE GRAN ABSOLUTE AUTO 0.15 K/mm3 (0.00-0.10); IMMATURE GRAN PERCENT AUTO 1 % (0-1); LYMPHOCYTES ABSOLUTE AUTO 2.44 K/mm3 (0.84-5.20); LYMPHOCYTES PERCENT AUTO 18 % (21-46); MONOCYTES ABSOLUTE AUTO 1.21 K/mm3 (0.16-1.47); MONOCYTES PERCENT AUTO 9 % (4-13); Mean Corpuscular HGB 34.4 pg (26.0-34.0); Mean Corpuscular HGB Conc 33.5 g/dL (31.5-36.5); Mean Corpuscular Volume 103 fL (80-100); Mean Platelet Volume 9.1 fL (9.1-12.4); NEUTROPHILS ABSOLUTE AUTO 9.85 K/mm3 (1.96-9.15); NEUTROPHILS PERCENT AUTO 72 % (41-73); Platelet Count 326 K/mm3 (150-400); RDW Coefficient Variation 12.7 % (11.7-14.2); RDW Standard Deviation 47.4 fL (35.1-46.3); Red Blood Cell Count 2.47 M/mm3 (3.80-5.20); White Blood Cell Count 13.68 K/mm3 (4.00-11.30)
[2024-09-09] MEDS ORDERED: HYDROmorphone HCl/Pf 1MG SYR IV ONE ×3 (18:45→22:15)
[2024-09-09] MEDS ORDERED: Pantoprazole Sodium 40 MG Injection IV ONE (18:45)
[2024-09-09] MEDS ORDERED: Pantoprazole Sodium 40 MG in NS 50 ML IV SCH (18:45)
[2024-09-09 18:52] LABS: Albumin, Blood 2.5 g/dL (3.4-5.0); Albumin/Globulin Ratio 1.1 (0.8-1.8); Bilirubin, Total 0.1 mg/dL (0.1-1.0); Bun/Creatinine Ratio 54.2 (12.0-20.0); Calcium, Blood 8.2 mg/dL (8.5-10.1); Creatinine, Blood 0.74 mg/dL (0.40-1.00); Globulin, Blood 2.3 g/dL (2.2-4.0); Potassium, Blood 4.8 mmol/L (3.5-5.5); Total Protein, Blood 4.8 g/dL (6.4-8.2)
[2024-09-09] MEDS ORDERED: NS 1,000 ML IV SCH (20:30)
[2024-09-09 21:30] VITALS: BP 107/72
== END 2024-09-09 22:15 ==
LOC: ER 18:06
PROVIDERS: Physician Assistant
DX: D62 Acute posthemorrhagic anemia (principal); K92.2 Gastrointestinal hemorrhage, unspecified; Z87.891 Personal history of nicotine dependence; Z79.02 Long term (current) use of antithrombotics/antiplatelets; Z79.899 Other long term (current) drug therapy; Z88.6 Allergy status to analgesic agent; Z91.018 Allergy to other foods; Z88.5 Allergy status to narcotic agent; Z91.048 Other nonmedicinal substance allergy status; Z88.1 Allergy status to other antibiotic agents; Z91.040 Latex allergy status; Z88.8 Allergy status to other drugs, medicaments and biological substances
CPT/HCPCS: 36430; 74177; 80053; 85025; 86850; 86900; 86901; 86923; 96365-59; 96366; 96375; 96376; 99285-25; J1171; J2405; J2470; J7030; P9016; Q9967

== ENCOUNTER 2024-09-12 11:36 | Emergency (ER) | payer OTHER ==
[~2024-09-12] VITALS: Ht 160 cm; Wt 44.9 kg
[2024-09-12 12:23] LABS: BASOPHILS ABSOLUTE AUTO 0.03 K/mm3 (0.00-0.23); BASOPHILS PERCENT AUTO 0 % (0-2); EOSINOPHILS ABSOLUTE AUTO 0.01 K/mm3 (0.00-0.68); EOSINOPHILS PERCENT AUTO 0 % (0-6); Hematocrit 30.9 % (33.0-51.0); Hemoglobin 10.4 g/dL (11.5-16.0); IMMATURE GRAN ABSOLUTE AUTO 0.18 K/mm3 (0.00-0.10); IMMATURE GRAN PERCENT AUTO 2 % (0-1); LYMPHOCYTES ABSOLUTE AUTO 2.43 K/mm3 (0.84-5.20); LYMPHOCYTES PERCENT AUTO 22 % (21-46); MONOCYTES ABSOLUTE AUTO 0.79 K/mm3 (0.16-1.47); MONOCYTES PERCENT AUTO 7 % (4-13); Mean Corpuscular HGB Conc 33.7 g/dL (31.5-36.5); Mean Corpuscular Volume 98 fL (80-100); NEUTROPHILS ABSOLUTE AUTO 7.58 K/mm3 (1.96-9.15); NEUTROPHILS PERCENT AUTO 69 % (41-73); Red Blood Cell Count 3.15 M/mm3 (3.80-5.20); White Blood Cell Count 11.02 K/mm3 (4.00-11.30)
[2024-09-12 12:41] LABS: Albumin, Blood 3.1 g/dL (3.4-5.0); Albumin/Globulin Ratio 1.1 (0.8-1.8); Bilirubin, Total 0.4 mg/dL (0.1-1.0); Bun/Creatinine Ratio 18.5 (12.0-20.0); Calcium, Blood 8.7 mg/dL (8.5-10.1); Creatinine, Blood 0.7 mg/dL (0.40-1.00); Globulin, Blood 2.8 g/dL (2.2-4.0); Potassium, Blood 3.7 mmol/L (3.5-5.5); Total Protein, Blood 5.9 g/dL (6.4-8.2)
[2024-09-12] MEDS ORDERED: Ondansetron HCl 2 MG / ML 2ML Vial IV ONE ×4 (13:20→22:35)
[2024-09-12] MEDS ORDERED: HYDROmorphone HCl/Pf 1MG SYR IV ONE ×3 (13:25→22:30)
[2024-09-12 15:44] LABS: Mean Platelet Volume 9.7 fL (9.1-12.4); Platelet Count 305 K/mm3 (150-400)
[2024-09-12] MEDS ORDERED: Ondansetron HCl 2 MG / ML 2ML Vial ONE (16:12)
[2024-09-12 16:31] LABS: Hematocrit 26.5 % (33.0-51.0)
[2024-09-12] MEDS ORDERED: NS 1,000 ML IV SCH (18:40)
[2024-09-12 19:35] LABS: Hematocrit 26.3 % (33.0-51.0); Hemoglobin 8.9 g/dL (11.5-16.0); Mean Corpuscular HGB 33.2 pg (26.0-34.0); Mean Corpuscular HGB Conc 33.8 g/dL (31.5-36.5); Mean Corpuscular Volume 98 fL (80-100); Mean Platelet Volume 9.5 fL (9.1-12.4); Platelet Count 237 K/mm3 (150-400); RDW Standard Deviation 57.5 fL (35.1-46.3); Red Blood Cell Count 2.68 M/mm3 (3.80-5.20); White Blood Cell Count 9.94 K/mm3 (4.00-11.30)
[2024-09-12 20:43] LABS: International Normalized Ratio 0.97; Prothrombin Time Results 10.4 Sec (9.7-11.5)
[2024-09-12 22:30] VITALS: BP 118/74
[2024-09-12] MEDS ORDERED: Droperidol 5 mg/2 ml Vial IV ONE (22:30)
== END 2024-09-12 23:04 | disposition short-term general hospital (02) ==
LOC: ER 11:36
PROVIDERS: Emergency Medicine; Physician Assistant; Student in an Organized Health Care Education/Training Program
DX: K92.2 Gastrointestinal hemorrhage, unspecified (principal); Z87.891 Personal history of nicotine dependence; Z79.02 Long term (current) use of antithrombotics/antiplatelets; Z79.899 Other long term (current) drug therapy; Z88.5 Allergy status to narcotic agent; Z91.048 Other nonmedicinal substance allergy status; Z91.040 Latex allergy status; Z88.1 Allergy status to other antibiotic agents; Z88.6 Allergy status to analgesic agent; Z91.018 Allergy to other foods; Z88.8 Allergy status to other drugs, medicaments and biological substances
CPT/HCPCS: 36415; 74174; 80053; 85014; 85018; 85025; 85027; 85610; 96361; 96374-59; 96375-59; 96376-59; 99285-25; J1171; J1790; J2405; J7030; Q9967

== ENCOUNTER 2024-10-04 16:01 | Emergency (ER) | payer OTHER ==
[~2024-10-04] VITALS: Ht 160 cm; Wt 44.0 kg
[2024-10-04 16:56] LABS: BASOPHILS ABSOLUTE AUTO 0.04 K/mm3 (0.00-0.23); BASOPHILS PERCENT AUTO 1 % (0-2); EOSINOPHILS ABSOLUTE AUTO 0.11 K/mm3 (0.00-0.68); EOSINOPHILS PERCENT AUTO 3 % (0-6); Hemoglobin 12.7 g/dL (11.5-16.0); IMMATURE GRAN ABSOLUTE AUTO 0.01 K/mm3 (0.00-0.10); IMMATURE GRAN PERCENT AUTO 0 % (0-1); LYMPHOCYTES ABSOLUTE AUTO 2.04 K/mm3 (0.84-5.20); LYMPHOCYTES PERCENT AUTO 48 % (21-46); MONOCYTES ABSOLUTE AUTO 0.31 K/mm3 (0.16-1.47); MONOCYTES PERCENT AUTO 7 % (4-13); Mean Corpuscular HGB 33.7 pg (26.0-34.0); Mean Corpuscular HGB Conc 32.6 g/dL (31.5-36.5); Mean Corpuscular Volume 103 fL (80-100); NEUTROPHILS ABSOLUTE AUTO 1.71 K/mm3 (1.96-9.15); NEUTROPHILS PERCENT AUTO 41 % (41-73); Platelet Count 381 K/mm3 (150-400); RDW Coefficient Variation 15.6 % (11.7-14.2); Red Blood Cell Count 3.77 M/mm3 (3.80-5.20); White Blood Cell Count 4.22 K/mm3 (4.00-11.30)
[2024-10-04 17:17] LABS: Albumin, Blood 3.3 g/dL (3.4-5.0); Bilirubin, Total 0.2 mg/dL (0.1-1.0); Bun/Creatinine Ratio 13.9 (12.0-20.0); Calcium, Blood 8.8 mg/dL (8.5-10.1); Creatinine, Blood 0.65 mg/dL (0.40-1.00); Globulin, Blood 3.2 g/dL (2.2-4.0); Potassium, Blood 4.2 mmol/L (3.5-5.5); Total Protein, Blood 6.5 g/dL (6.4-8.2)
[2024-10-04] MEDS ORDERED: CAFFEINE CITRATED IV SCH ×2 (19:05→21:00)
[2024-10-04] MEDS ORDERED: Prochlorperazine Edisylate 10 mg Vial IV ONE (19:05)
[2024-10-04] MEDS ORDERED: DiphenhydrAMINE HCl 50 MG/ML 1ML Vial IV ONE (19:05)
[2024-10-04] MEDS ORDERED: Caffeine 200 MG Tablet PO ONE ×2 (19:30→22:05)
[2024-10-04] MEDS ORDERED: NS IV SCH (21:00)
[2024-10-04] MEDS ORDERED: ONDA4 PO (21:43)
[2024-10-04] MEDS ORDERED: ACET500 PO (21:43)
[2024-10-04] MEDS ORDERED: NS 1,000 ML IV SCH (22:05)
[2024-10-04 22:45] VITALS: BP 126/71
== END 2024-10-04 23:15 | disposition home or self-care (01) ==
LOC: ER 16:01
PROVIDERS: Student in an Organized Health Care Education/Training Program
DX: G97.1 Other reaction to spinal and lumbar puncture (principal); R51.9 Headache, unspecified; Z87.891 Personal history of nicotine dependence; Z79.02 Long term (current) use of antithrombotics/antiplatelets; Z79.899 Other long term (current) drug therapy; Z88.5 Allergy status to narcotic agent; Z91.048 Other nonmedicinal substance allergy status; Z88.6 Allergy status to analgesic agent; Z91.040 Latex allergy status; Z91.018 Allergy to other foods; Z88.8 Allergy status to other drugs, medicaments and biological substances
CPT/HCPCS: 36415; 80053; 85025; 96361; 96374; 96375; 99284-25; A9270; J0706; J0780; J1200; J7030

== ENCOUNTER 2024-10-06 09:04 | Day surgery (SDC) | payer OTHER ==
[~2024-10-06] VITALS: Ht 160 cm; Wt 43.6 kg
[~2024-10-06 09:04] MED LIST changes: +ACET500 PO
[2024-10-06] MEDS ORDERED: NS 500 ML IV SCH (09:15)
[2024-10-06 09:30] VITALS: BP 131/91
--- NOTE | 2024-10-06 09:33 | NUR ---
WHEELCHAIRED INTO DAY SURGERY. LEANING FORWARD DUE TO SPINAL HEADACHE AND NAUSEA FEELING. History, Chart, Medications and Allergies reviewed before start of procedure. Pre-Op teaching done. Pt verbalizes understanding. Patient States Post-Procedure ride home has been arranged.
[2024-10-06 09:45] VITALS: BP 122/71
[2024-10-06] MEDS ORDERED: Ondansetron HCl 2 MG / ML 2ML Vial ONE (09:49)
--- NOTE | 2024-10-06 09:50 | NUR ---
TIME OUT WITH PATIENT AND DR FROST AT BEDSIDE FOR BLOOD PATCH PROCEDURE. MONITOR IN PLACE. PLACED PATIENT ONTO R SIDE INTO POSITION, TOLERATED WELL. 950 BLOOD PATCH PROCEDURE STARTED. SEE ANESTHESIA RECORDS. 956 COMPLETE WITH BLOOD PATCH PROCEDURE. NS IVF'S STARTED AND ZOFRAN 4MG IV GIVEN FOR NAUSEA. 958 REPOSITIONED PATIENT ONTO BACK AND DR FROST ELEVATED PATIENTS HOB WITH NO SEVERE HEADACHE NOTED. GOOD RELIEF WITH ZOFRAN. CONTINUE TO MONITOR.
[2024-10-06 10:00] VITALS: BP 112/73
[2024-10-06 10:15] VITALS: BP 119/68
--- NOTE | 2024-10-06 10:49 | NUR ---
Patient up to Ambulate independently. Gait steady. Discharge instructions reviewed with patient. Patient verbalizes understanding. Copy given to patient to take home. Patient States Post-Procedure ride home has been arranged. Puncture site to lumbar D&I. Bandaid placed to area.
== END 2024-10-06 10:32 | disposition home or self-care (01) ==
LOC: ORD 09:04 → ORSCMMR 09:04 → ORD 10:32
PROC: 3E0R3GC Introduction of Other Therapeutic Substance into Spinal Canal, Percutaneous Approach (ICD-10-PCS; principal; 2024-10-06)
DX: G97.1 Other reaction to spinal and lumbar puncture (principal); F31.81 Bipolar II disorder; Z95.0 Presence of cardiac pacemaker; Z98.84 Bariatric surgery status; Z85.3 Personal history of malignant neoplasm of breast; Z87.891 Personal history of nicotine dependence; Z79.899 Other long term (current) drug therapy
CPT/HCPCS: J2405; J7040